=== PATIENT | male | born 1950 | race Caucasian/White ===

== ENCOUNTER 2022-10-10 18:17 | Emergency (ER) | payer OTHER ==
[~2022-10-10] VITALS: Ht 177.8 cm; Wt 72.6 kg
[2022-10-10 18:38] VITALS: BP 116/75
[2022-10-10] MEDS ORDERED: IBUPROFEN 600 MG TABLET PO ONE (19:30)
[2022-10-10] MEDS ORDERED: ACETAMINOPHEN 325 MG TABLET PO ONE (19:30)
[2022-10-10] MEDS ORDERED: ACETAMINOPHEN 325 MG TABLET ONE (19:32)
[2022-10-10] MEDS ORDERED: IBUPROFEN 600 MG TABLET ONE (19:33)
--- NOTE | 2022-10-10 19:35 | NUR ---
COVID ANTIGEN, COVID PCR, INFLUENZA SWAB COLLECTED AND SENT TO LAB
[2022-10-10 20:19] LABS: BASOPHILS % (AUTO) 0.7 % (0.0-2.0); EOSINOPHILS % (AUTO) 1.6 % (0.0-6.0); HEMATOCRIT 45 % (39-51); LYMPHOCYTES # (AUTO) 0.8 K/uL (0.8-4.8); MEAN CORPUSCULAR HGB CONC 33 g/dl (31.0-36.0); MEAN CORPUSCULAR VOLUME 89 fL (80-96); MONOCYTES # (AUTO) 0.5 K/uL (0.1-1.30); MONOCYTES % (AUTO) 10.8 % (2.0-12.0); NEUTROPHILS % (AUTO) 68.9 % (43.0-81.0); PLATELET COUNT (AUTO) 122 K/uL (150-450); RED BLOOD CELL COUNT(AUTO) 5.09 MIL/uL (4.5-6.0); WHITE BLOOD COUNT (AUTO) 4.4 K/uL (4.3-11.0)
[2022-10-10] MEDS ORDERED: IBUP-1955 PO (20:44)
[2022-10-10] MEDS ORDERED: BENZ-13 PO (20:44)
[2022-10-10 20:58] LABS: CALCIUM, SERUM 8.4 mg/dL (8.5-10.1); CREATININE 1.1 mg/dL (0.6-1.3); POTASSIUM 4.3 mmol/L (3.5-5.1)
--- NOTE | 2022-10-10 21:25 | NUR ---
Patient discharged to home in stable condition. Written and verbal after care instructions given. Patient verbalizes understanding of instruction.
== END 2022-10-10 21:26 | disposition home or self-care (01) ==
LOC: ER 18:39
DX: J10.1 Influenza due to other identified influenza virus with other respiratory manifestations (principal); Z20.822 Contact with and (suspected) exposure to COVID-19
CPT/HCPCS: 99285; 71045; 87426; 93005; 87804; 85025; 80048; 36415; U0003; C9803 ×2

== ENCOUNTER 2022-10-28 21:00 | Emergency (ER) | payer OTHER ==
[~2022-10-28] VITALS: Ht 177.8 cm; Wt 72.6 kg
[~2022-10-28 21:00] MED LIST: BENZ-13 PO; IBUP-1955 PO
--- NOTE | 2022-10-28 21:10 | NUR ---
BIBSELF SENT BY PMD DUE TO XRAY SHOWING "PULMONARY VASCULAR CONGESTION" SEEN AT [facility]. HAD FLU 2 WEEKS AGO. REMAINS TO BE HAVING COUGH. PATIENT IS AAOX4. AMBULATORY, ABLE TO MAKE NEEDS KNOWN. ATTACHED TO MONITOR. -SOB,-CP. VITALS CHECKED.
--- NOTE | 2022-10-28 21:15 | NUR ---
XRAY DONE AT BEDSIDE.
--- NOTE | 2022-10-28 21:18 | NUR ---
SEEN BY DR TRIANA AT BEDSIDE
--- NOTE | 2022-10-28 22:10 | NUR ---
Patient discharged to home in stable condition. Written and verbal after care instructions given. Patient verbalizes understanding of instruction.
[2022-10-28 22:11] VITALS: BP 135/73
== END 2022-10-28 22:12 | disposition home or self-care (01) ==
LOC: ER 21:02
DX: R91.8 Other nonspecific abnormal finding of lung field (principal); E78.00 Pure hypercholesterolemia, unspecified; Z79.899 Other long term (current) drug therapy
CPT/HCPCS: 71045-TC

== ENCOUNTER 2023-07-24 12:46 | Emergency (ER) | payer OTHER ==
[~2023-07-24] VITALS: Ht 177.8 cm; Wt 72.6 kg
[2023-07-24 13:43] LABS: BASOPHILS # (AUTO) 0.1 K/uL (0.0-0.2); BASOPHILS % (AUTO) 0.8 % (0.0-2.0); EOSINOPHILS # (AUTO) 0.2 K/uL (0.0-0.7); EOSINOPHILS % (AUTO) 2.8 % (0.0-6.0); HEMATOCRIT 43 % (39-51); HEMOGLOBIN 14.2 g/dL (13.5-17.5); LYMPHOCYTES # (AUTO) 1.4 K/uL (0.8-4.8); LYMPHOCYTES % (AUTO) 20.3 % (20.0-44.0); MEAN CORPUSCULAR HEMOGLOBIN 30 PG (26.0-33.0); MEAN CORPUSCULAR HGB CONC 33 g/dl (31.0-36.0); MEAN CORPUSCULAR VOLUME 89 fL (80-96); MONOCYTES # (AUTO) 0.4 K/uL (0.1-1.30); MONOCYTES % (AUTO) 5.7 % (2.0-12.0); NEUTROPHILS % (AUTO) 70.4 % (43.0-81.0); PLATELET COUNT (AUTO) 192 K/uL (150-450); RED CELL DISTRIBUTION WIDTH 13.8 % (11.5-15.0); WHITE BLOOD COUNT (AUTO) 7.1 K/uL (4.3-11.0)
[2023-07-24 13:53] LABS: CALCIUM, SERUM 8.8 mg/dL (8.5-10.1); CARBON DIOXIDE 24 mmol/L (21-32); CHLORIDE 108 mmol/L (98-107); GLUCOSE 91 mg/dL (74-106); POTASSIUM 4.1 mmol/L (3.5-5.1); SODIUM SERUM 140 mmol/L (136-145); UREA NITROGEN, BLOOD 13 mg/dL (7-18)
[2023-07-24] MEDS ORDERED: BENZ-13 PO (14:40)
[2023-07-24] MEDS ORDERED: IBUP-1955 PO (14:40)
[2023-07-24 15:26] VITALS: BP 101/67; TEMP 98.2; O2SAT 98
== END 2023-07-24 15:26 | disposition home or self-care (01) ==
LOC: ER 12:51
DX: J06.9 Acute upper respiratory infection, unspecified (principal); R05.9 Cough, unspecified; R09.81 Nasal congestion; R07.89 Other chest pain; I10 Essential (primary) hypertension; E78.5 Hyperlipidemia, unspecified; Z98.890 Other specified postprocedural states; Z79.899 Other long term (current) drug therapy; Z20.822 Contact with and (suspected) exposure to COVID-19
CPT/HCPCS: 99285; 71045; 87426; 93005 ×2; 85025; 80048; 36415; 84484; C9803